=== PATIENT | female | born 1945 ===

== ENCOUNTER 2024-08-25 06:34 | Day surgery (SDC) | payer OTHER ==
[2024-08-25] MEDS ORDERED: MIDAZOLAM HCL 2 MG/2 ML VIAL IV ONE (10:00)
[2024-08-25] MEDS ORDERED: fentaNYL CITRATE 50 MCG/ML AMPUL IV ONE (10:00)
[2024-08-25] MEDS ORDERED: DIPHENHYDRAMINE HCL 50 MG/ML VIAL 1ML IV ONE (10:00)
[2024-08-25] MEDS ORDERED: ENALAPRILAT DIHYDRATE 2.5 MG/2 ML VIAL IV ONE (10:15)
== END 2024-08-25 11:25 | disposition home or self-care (01) ==
LOC: AMB-ENDOS 06:34
PROVIDERS: ATTEND Surgery
DX: K21.9 Gastro-esophageal reflux disease without esophagitis (principal); K31.7 Polyp of stomach and duodenum; K57.30 Diverticulosis of large intestine without perforation or abscess without bleeding; R19.4 Change in bowel habit

== ENCOUNTER 2024-10-26 12:00 | Inpatient (IN) | payer OTHER ==
[~2024-10-26] VITALS: Ht 152.4 cm; Wt 70.8 kg
[2024-10-26] MEDS ORDERED: IRBESARTAN-HCT1 EACH PO (14:47)
[2024-10-26] MEDS ORDERED: PANTOPRAZOLE SO40 MG PO (14:48)
[2024-10-26] MEDS ORDERED: METFORMIN HCL500 M3 PO (14:48)
[2024-10-26] MEDS ORDERED: LEVOTHYROXINE25 MCG PO (14:49)
[2024-10-26] MEDS ORDERED: ATORVASTATIN CA10 MG PO (14:49)
[2024-11-03] MEDS ORDERED: CEFTRIAXONE SODIUM 2,000 MG VIAL ONE (12:26)
[2024-11-03] MEDS ORDERED: METRONIDAZOLE/SODIUM CHLORIDE 500 MG/100 ML PIGGYBACK IV ONE ×2 (12:26→16:30)
[2024-11-03] MEDS ORDERED: CEFTRIAXONE SODIUM 2,000 MG VIAL IV ONE (16:30)
[2024-11-03] MEDS ORDERED: LIDOCAINE HCL 1%/EPINEPHRINE 20ML VIAL IJ ONE (16:30)
[2024-11-03] MEDS ORDERED: BUPIVACAINE HCL 30 ML VIAL IV ONE (16:30)
[2024-11-03] MEDS ORDERED: MORPHINE SULFATE 4 MG/ML CARTRIDGE IV PRN (16:45)
[2024-11-03] MEDS ORDERED: OxyCODONE HCL 5 MG TABLET (ROXICODONE) PO PRN (16:45)
[2024-11-03] MEDS ORDERED: RINGERS SOLUTION,LACTATED 1,000 ML IV SCH (16:45)
[2024-11-03] MEDS ORDERED: ONDANSETRON HCL 2 MG/ML VIAL IV PRN (16:45)
[2024-11-03] MEDS ORDERED: LACTOBACILLUS ACIDOPHILUS 1 CAP CAP PO SCH (17:00)
[2024-11-03] MEDS ORDERED: METRONIDAZOLE/SODIUM CHLORIDE 500 MG/100 ML PIGGYBACK IV SCH (17:00)
[2024-11-03] MEDS ORDERED: HYOSCYAMINE SULFATE 0.125 MG TAB.SUBL SL SCH (17:00)
[2024-11-03] MEDS ORDERED: TAMSULOSIN HCL 0.4 MG CAP PO SCH (17:00)
[2024-11-03] MEDS ORDERED: GABAPENTIN 300 MG CAPSULE PO SCH (17:00)
[2024-11-03] MEDS ORDERED: MORPHINE SULFATE 4 MG/ML VIAL IV ONE ×3 (17:40→19:10)
[2024-11-03] MEDS ORDERED: ONDANSETRON HCL 2 MG/ML VIAL IV ONE (17:55)
[2024-11-03] MEDS ORDERED: DEXTROSE 50 % IN WATER 0.5 G/ML VIAL IV PRN (18:00)
[2024-11-03] MEDS ORDERED: ACETAMINOPHEN 500 MG GEL..CAP PO SCH (18:00)
[2024-11-03] MEDS ORDERED: INSULIN LISPRO 1,000 UNIT/10 ML UNITS SUBCUTANEO PRN (18:00)
[2024-11-03] MEDS ORDERED: ENALAPRILAT DIHYDRATE 1.25 MG/ML VIAL IV PRN (18:00)
[2024-11-03] MEDS ORDERED: CIPROFLOXACIN IN 5 % DEXTROSE 400 MG/200 ML PIGGYBAG IV SCH (21:00)
[2024-11-03] MEDS ORDERED: FAMOTIDINE/PF 20 MG/2 ML VIAL IV PUSH SCH (21:00)
[2024-11-03 22:28] VITALS: BP 158/83; O2SAT 94
[2024-11-04 01:43] VITALS: BP 149/88; O2SAT 99
[2024-11-04] MEDS ORDERED: PATIENTS OWN MEDICATION (MEDICAMENTO EN PISO) PO SCH (06:00)
[2024-11-04 08:00] VITALS: BP 122/73; O2SAT 94
[2024-11-04] MEDS ORDERED: IRBESARTAN 150 MG TABLET PO SCH (09:00)
[2024-11-04] MEDS ORDERED: HYDROCHLOROTHIAZIDE 12.5 MG CAPSULE PO SCH (09:00)
[2024-11-04 16:00] VITALS: BP 160/84; O2SAT 96
[2024-11-04] MEDS ORDERED: ENOXAPARIN SODIUM 40 MG/0.4 ML SYRINGE SUBCUTANEO SCH (17:00)
[2024-11-04] MEDS ORDERED: ATORVASTATIN CALCIUM 10 MG TABLET PO SCH (17:00)
[2024-11-04 18:01] LABS: HEMATOCRIT 35.1 % (36.0-45.00); HEMOGLOBIN 11.9 g/dL (12.0-15.00); MEAN CELL VOLUME 93.4 fL (80.00-100.00); MEAN CORPUSCULAR HEMOGLOBIN 31.6 pg (27.00-32.0); MEAN CORPUSCULAR HGB CONC 33.8 g/dl (32.0-36.0); PLATELET COUNT 195 K/uL (150-450); RED BLOOD COUNT 3.76 M/uL (4.00-6.00); RED CELL DISTRIBUTION WIDTH 13.5 % (11.5-14.5)
[2024-11-04] MEDS ORDERED: AMINOCAPROIC ACID 250 MG/ML VIAL IV SCH (18:30)
[2024-11-05 07:38] LABS: HEMATOCRIT 33.2 % (36.0-45.00); HEMOGLOBIN 11.5 g/dL (12.0-15.00); MEAN CELL VOLUME 92.8 fL (80.00-100.00); MEAN CORPUSCULAR HEMOGLOBIN 32.2 pg (27.00-32.0); MEAN CORPUSCULAR HGB CONC 34.6 g/dl (32.0-36.0); PLATELET COUNT 189 K/uL (150-450); RED BLOOD COUNT 3.58 M/uL (4.00-6.00); RED CELL DISTRIBUTION WIDTH 13.6 % (11.5-14.5)
[2024-11-05 08:00] VITALS: BP 164/84; O2SAT 95
[2024-11-05 08:06] LABS: CREATININE SERUM 0.63 mg/dL (0.55-1.02); GFR 91.63; PHOSPHOROUS 2.4 mg/dL (2.5-4.9); POTASSIUM 3.25 mEq/L (3.5-5.1)
[2024-11-05] MEDS ORDERED: ENOXAPARIN SODIUM 40 MG/0.4 ML SYRINGE SUBCUTANEO SCH (09:00)
[2024-11-05] MEDS ORDERED: POTASSIUM CHLORIDE 20MEQ/100ML H2O PB IV NR (11:00)
[2024-11-05] MEDS ORDERED: AMINOCAPROIC ACID 250 MG/ML VIAL IV NR (11:00)
[2024-11-05 16:30] VITALS: BP 175/69; O2SAT 96
[2024-11-05] MEDS ORDERED: POTASSIUM PHOS,M-BASIC-D-BASIC 3 MM/ML VIAL IV ONE (17:00)
[2024-11-05 23:36] VITALS: BP 130/78; O2SAT 97
[2024-11-06 08:59] VITALS: BP 150/79; O2SAT 96
[2024-11-06] MEDS ORDERED: DIBUCAINE 15 GM OINT..GM. TUBE RECTAL NR (09:00)
[2024-11-06 15:51] LABS: HEMATOCRIT 33.1 % (36.0-45.00); HEMOGLOBIN 11.5 g/dL (12.0-15.00); MEAN CORPUSCULAR HEMOGLOBIN 32.3 pg (27.00-32.0); MEAN CORPUSCULAR HGB CONC 34.7 g/dl (32.0-36.0); PLATELET COUNT 198 K/uL (150-450); RED BLOOD COUNT 3.56 M/uL (4.00-6.00); RED CELL DISTRIBUTION WIDTH 13.7 % (11.5-14.5)
[2024-11-06 16:16] LABS: COVID-19 AG NEGATIVE (NEGATIVE)
[2024-11-06 16:28] VITALS: BP 164/78; O2SAT 95
[2024-11-07 00:19] VITALS: BP 146/73; O2SAT 95
[2024-11-07 08:00] VITALS: BP 157/77; O2SAT 95
[2024-11-07] MEDS ORDERED: TYLENOL ARTHRI650 MG PO (12:55)
[2024-11-07] MEDS ORDERED: NEURONTIN300 MG PO (12:55)
== END 2024-11-07 14:53 | disposition home or self-care (01) | DRG 331 ==
LOC: O/R 11-03 06:29 → SURH 11-03 12:00 → SURG 11-03 18:23
PROVIDERS: Internal Medicine Geriatric Medicine; ADMIT Surgery; ATTEND Surgery
PROC: 0DBP4ZZ Excision of Rectum, Percutaneous Endoscopic Approach (ICD-10-PCS; 2024-11-03)
PROC: 0DJD8ZZ Inspection of Lower Intestinal Tract, Via Natural or Artificial Opening Endoscopic (ICD-10-PCS; 2024-11-03)
PROC: 0DTN4ZZ Resection of Sigmoid Colon, Percutaneous Endoscopic Approach (ICD-10-PCS; principal; 2024-11-03 15:45)
DX: K57.32 Diverticulitis of large intestine without perforation or abscess without bleeding (principal); R10.9 Unspecified abdominal pain; R19.4 Change in bowel habit; K30 Functional dyspepsia; K21.9 Gastro-esophageal reflux disease without esophagitis